=== PATIENT | male | born 1970 | race Caucasian/White ===

== ENCOUNTER 2022-12-11 00:30 | Emergency (ER) | payer MEDICAID ==
[~2022-12-11] VITALS: Ht 180.3 cm; Wt 82.7 kg
[~2022-12-11 00:30] MED LIST: NO HOME MEDS
[2022-12-11] MEDS ORDERED: metoprolol tartrate 1mg/ml inj IV ONE (00:40)
[2022-12-11] MEDS ORDERED: adenosine 3mg/ml 2ml vial IV ONE (00:40)
[2022-12-11] MEDS ORDERED: metoprolol tartrate 1mg/ml inj IV STA (00:48)
--- NOTE | 2022-12-11 00:49 | NUR ---
DEFIB PADS PLACED
[2022-12-11] MEDS ORDERED: metoprolol tartrate 50mg tablet PO ONE (00:50)
--- NOTE | 2022-12-11 01:02 | NUR ---
PER DR JALLOH, 5 MG IV METOPROLOL GIVEN WITH GOOD EFFECT. ADENOSINE WILL NOT BE ADMIN AT THIS TIME. 25 MG PO METOPROLOL GIVEN IN ADDITION, PER MD ANOTHER 5MG IV METOPROLOL ORDERED TO BE ON HOLD IF NEEDED.
[2022-12-11 01:10] LABS: BASOPHILS # (AUTO) 0.1 X10'3 (0-0.2); BASOPHILS % (AUTO) 0.8 % (0-1); EOSINOPHILS # (AUTO) 0.2 X10'3 (0-0.9); EOSINOPHILS % (AUTO) 2.5 % (0-6); HEMATOCRIT 43.9 % (42.0-52.0); HEMOGLOBIN 15.1 g/dl (14.0-17.9); LYMPHOCYTES % (AUTO) 31.2 % (21-51); MEAN CORPUSCULAR HEMOGLOBIN 32.2 PG (27.0-31.0); MEAN CORPUSCULAR HGB CONC 34.5 g/dL (33.0-36.5); MEAN CORPUSCULAR VOLUME 93.3 FL (78-98); MEAN PLATELET VOLUME 6.9 FL (7.4-10.4); MONOCYTES # (AUTO) 0.8 X10'3 (0-0.9); MONOCYTES % (AUTO) 8.7 % (2-12); NEUTROPHILS # (AUTO) 5.4 X10'3 (1.8-7.7); NEUTROPHILS % (AUTO) 56.8 % (42-75); PLATELET COUNT 368 X10'3 (140-440); RED BLOOD COUNT 4.71 X10'6 (4.70-6.10); RED CELL DISTRIBUTION WIDTH 12.7 % (11.5-14.5); WHITE BLOOD COUNT 9.6 X10'3 (4.5-11.0)
[2022-12-11 01:19] LABS: ALANINE AMINOTRANSFERASE 37 U/L (12-78); ALBUMIN 3.5 G/DL (3.4-5.0); ALBUMIN/GLOBULIN RATIO 0.9 (1.1-1.5); ALKALINE PHOSPHATASE 68 IU/L (46-116); ANION GAP 9 (8-16); ASPARTATE AMINO TRANSFERASE 19 U/L (10-37); BILIRUBIN,TOTAL 0.1 MG/DL (0.1-1.0); BLOOD UREA NITROGEN 17 MG/DL (7-18); BUN/CREATININE RATIO 14.3 (10.0-20.0); CALCIUM 8.5 MG/DL (8.5-10.1); CHLORIDE 106 MMOL/L (99-107); CREATININE 1.19 MG/DL (0.60-1.10); GLUCOSE 150 MG/DL (70-104); POTASSIUM 3.3 MMOL/L (3.5-5.1); SODIUM 140 MMOL/L (135-145); TOTAL CARBON DIOXIDE 25.5 MMOL/L (24-32); TOTAL PROTEIN 7.2 G/DL (6.4-8.2); eGFR 65 ML/MIN
[2022-12-11 01:28] LABS: MAGNESIUM 1.9 MG/DL (1.5-2.4)
[2022-12-11] MEDS ORDERED: potassium Cl 20 mEq SR tablet PO STA (01:33)
[2022-12-11 01:49] VITALS: BP 106/74
== END 2022-12-11 01:50 | disposition home or self-care (01) ==
LOC: ER 00:31
DX: I47.1 Supraventricular tachycardia (principal); E87.6 Hypokalemia; Z79.899 Other long term (current) drug therapy
CPT/HCPCS: 36415; 71045; 80053; 83735; 83880; 85025; 93005; 96374; 99291; J3490; 99285